=== PATIENT | female | born 1960 | race African-American/Black ===

== ENCOUNTER → 2016-12-27 16:01 | Outpatient (CLI) | payer OTHER | END | disposition home or self-care (01) | LOC: D.MAMMO 09:00 | DX: Z85.3 Personal history of malignant neoplasm of breast (principal) ==

== ENCOUNTER 2017-04-11 14:29 | Emergency (ER) | payer OTHER | END 2017-04-11 18:50 | disposition home or self-care (01) | LOC: D.ER 14:29 | DX: G45.9 Transient cerebral ischemic attack, unspecified (principal); R20.2 Paresthesia of skin; I10 Essential (primary) hypertension; Z85.3 Personal history of malignant neoplasm of breast ==

== ENCOUNTER 2017-06-24 09:00 | Outpatient (CLI) | payer OTHER | END 2017-06-24 23:59 | disposition home or self-care (01) | LOC: D.MAMMO 09:00 | DX: Z85.3 Personal history of malignant neoplasm of breast (principal) ==

== ENCOUNTER → 2017-12-30 10:00 | Outpatient (CLI) | payer MEDICARE, OTHER | END | disposition home or self-care (01) | LOC: D.MAMMO 12-23 09:30 | DX: Z85.3 Personal history of malignant neoplasm of breast (principal); Z12.31 Encounter for screening mammogram for malignant neoplasm of breast ==

== ENCOUNTER → 2018-08-22 17:49 | Outpatient (CLI) | payer MEDICARE, OTHER | END | disposition home or self-care (01) | LOC: D.MAMMO 08-02 10:30 | DX: Z85.3 Personal history of malignant neoplasm of breast (principal) ==

== ENCOUNTER → 2019-12-19 21:17 | Outpatient (CLI) | payer MEDICARE, OTHER | END | disposition home or self-care (01) | LOC: D.MAMMO 09-27 10:00 | PROVIDERS: ATTEND Internal Medicine Hematology & Oncology | DX: C50.411 Malignant neoplasm of upper-outer quadrant of right female breast (principal); D51.8 Other vitamin B12 deficiency anemias ==

== ENCOUNTER → 2020-01-09 07:04 | Outpatient (CLI) | payer MEDICARE, OTHER | END | disposition home or self-care (01) | LOC: D.MAMMO 01-04 08:00 | PROVIDERS: ATTEND Internal Medicine Hematology & Oncology | DX: C50.411 Malignant neoplasm of upper-outer quadrant of right female breast (principal); D51.8 Other vitamin B12 deficiency anemias ==